=== PATIENT | female | born 1995 | race Caucasian/White ===

== ENCOUNTER 2021-05-22 06:44 | Day surgery (SDC) | payer MEDICAID ==
[~2021-05-22] VITALS: Ht 162.6 cm; Wt 77.3 kg
[2021-05-22 06:55] VITALS: BP 167/72
[2021-05-22] MEDS ORDERED: methadone PO (07:23)
[2021-05-22 07:59] LABS: BASOPHILS % (AUTO) 0.7 % (0-1); EOSINOPHILS # (AUTO) 0.1 X10'3 (0-0.9); EOSINOPHILS % (AUTO) 1.6 % (0-6); HEMATOCRIT 36.7 % (35.0-45.0); HEMOGLOBIN 12.6 g/dl (12.0-16.0); LYMPHOCYTES # (AUTO) 2.5 X10'3 (1.1-4.8); LYMPHOCYTES % (AUTO) 45.7 % (21-51); MEAN CORPUSCULAR HEMOGLOBIN 29.3 PG (27.0-31.0); MEAN CORPUSCULAR HGB CONC 34.4 g/dL (33.0-36.5); MEAN CORPUSCULAR VOLUME 85.3 FL (78-98); MONOCYTES # (AUTO) 0.3 X10'3 (0-0.9); MONOCYTES % (AUTO) 5.6 % (2-12); NEUTROPHILS # (AUTO) 2.5 X10'3 (1.8-7.7); NEUTROPHILS % (AUTO) 46.4 % (42-75); PLATELET COUNT 205 X10'3 (140-440); RED CELL DISTRIBUTION WIDTH 13.8 % (11.5-14.5); WHITE BLOOD COUNT 5.4 X10'3 (4.5-11.0)
[2021-05-22 08:19] LABS: ALANINE AMINOTRANSFERASE 32 U/L (12-78); ALBUMIN 3.9 G/DL (3.4-5.0); ALBUMIN/GLOBULIN RATIO 1.2 (1.1-1.5); ALKALINE PHOSPHATASE 85 IU/L (46-116); ANION GAP 12 (8-16); ASPARTATE AMINO TRANSFERASE 20 U/L (10-37); BILIRUBIN,TOTAL 0.4 MG/DL (0.1-1.0); BLOOD UREA NITROGEN 12 MG/DL (7-18); BUN/CREATININE RATIO 12.9 (6.6-38.0); C-REACTIVE PROTEIN 0.96 MG/DL (0.0-0.5); CALCIUM 8.7 MG/DL (8.5-10.1); CHLORIDE 106 MMOL/L (99-107); CREATININE 0.93 MG/DL (0.40-0.90); GLUCOSE 105 MG/DL (70-104); POTASSIUM 3.8 MMOL/L (3.5-5.1); SODIUM 143 MMOL/L (135-145); TOTAL PROTEIN 7.2 G/DL (6.4-8.2); eGFR 73 ML/MIN
[2021-05-22] MEDS ORDERED: fentaNYL/PF 50MCG/1 ML 2ML syringe ONE (08:22)
[2021-05-22] MEDS ORDERED: MIDAZolam 1 MG/ML 5ML VIAL ONE (08:23)
[2021-05-22] MEDS ORDERED: LIDOcaine Viscous 15ml cup ONE (08:23)
[2021-05-22 09:25] VITALS: BP 99/64
[2021-05-22 09:35] VITALS: BP 101/55
[2021-05-22 09:45] VITALS: BP 107/56
[2021-05-22 09:55] VITALS: BP 106/51
== END 2021-05-22 09:55 | disposition home or self-care (01) ==
LOC: GI LAB 06:44
PROVIDERS: ATTEND Internal Medicine Gastroenterology
DX: K92.2 Gastrointestinal hemorrhage, unspecified (principal); K92.1 Melena; K21.00 Gastro-esophageal reflux disease with esophagitis, without bleeding; K29.50 Unspecified chronic gastritis without bleeding
CPT/HCPCS: 36415; 43239; 80053; 85025; 85651; 86140; 99152; J2250; J3010; J7040; Z7512; A4620